=== PATIENT | male | born 1945 | race Hispanic/Latino ===

== ENCOUNTER → 2025-02-28 | Outpatient (CLI) | payer SELFPAY ==
--- NOTE | 2025-03-01 14:37 | HMCIMG ---
EXAM: CT Cardiac calcium scoring. CLINICAL HISTORY: CAD screening. TECHNIQUE: Thin collimated axial CT cardiac images were obtained. A CT scan is done according to ALARA (As Low As Reasonably Achievable). CONTRAST: None. COMPARISON: None provided. FINDINGS: Moderate-sized hiatus hernia noted. Calcium Score: VESSEL Number of lesions Volume mm3 Equi. Mass/mg Calcium score LM 2 65.7 --.-- 86.5 LAD 6 361.2 --.-- 442.8 LCX 4 378.4 --.-- 496.4 RCA 5 167.2 --.-- 198.6 Total 17 972.4 --.-- 1224.2 IMPRESSION: The calcium score is 1224.2. This places the patient into the 90th percentile in comparison to a group of patients asymptomatic for coronary artery disease with the same age and gender. This means that 90% of males aged >74 have a calcium score that is lower than the patient's. Moderate-sized hiatus hernia. /Benson
== END | disposition home or self-care (01) ==
LOC: RAH 12:36
PROVIDERS: ATTEND Internal Medicine Cardiovascular Disease
DX: Z13.6 Encounter for screening for cardiovascular disorders (principal); K44.9 Diaphragmatic hernia without obstruction or gangrene; I25.10 Atherosclerotic heart disease of native coronary artery without angina pectoris
CPT/HCPCS: 75571